=== PATIENT | female | born 1955 | race Two or more races ===

== ENCOUNTER 2017-10-18 18:17 | Observation (INO) ==
--- NOTE | 2017-10-18 19:21 | DR.GENAD ---
HPI - Complaint/Symptoms Chief Complaint Doctors Comments: Patient was in the emergency room earlier today and the family states she took an overdose of her medicines and left the emergency room around 7 pm after getting her at 3pm. Family states she was doing fine initially when she got home but started vomiting and having problems breathing and has been weak since and almost fell at home. States she has not been feeling good since and has been having xiphoid chest pain. States she does not have a local doctor but has a doctor in [place]. She has been having chest pain, SOB and wheezing tonight. Family denies alcohol or tobacco usage. States patient has had wisdom tooth surgery recently and has been taking medicines for her tooth and was taking to much of it. - Nurses notes reviewed Nurses Notes Review: Yes - Source History Provided: Patient, Family Member - Mode of Arrival Mode of Arrival: Ambulatory - Timing Came on: Gradually - Duration Duration: Constant How lon Duration: Hours - Location Location: xiphoid chest pain - Severity Severity: Moderate - Modifying Factors Worsens:: nothing Improves:: nothing <AL COKER - Last Filed: 10/19/17 04:29> - PCP Primary Care Physician: NFD - HPI Comment HPI Comment: PER CHIEF COMPLAINT. - Complaint/Symptoms Chief Complaint:: PT STARTED SHIVERING AND BECAME WEAK ABOUT 11 OR 12 NOON TODAY AND JUST HASN'T FELT ANY BETTER SINCE. SHE STATED THAT SHE TOOK SOME ANTIBOTIC FOR HER WISDOM TEETH AND THAT IS WHEN SHE STARTED TO FEEL BAD. - Nurses notes reviewed Nurses Notes Review: Yes - Source History Provided: Patient - Mode of Arrival Mode of Arrival: Ambulatory - Timing Onset of Chief Complaint: 10/18/17 <DAVE SMART - Last Filed: 11/12/17 04:04> PMH - PMH Past Medical History: Yes Past Medical History: Diabetes, Hypertension Past Surgical History: Yes Surgical History: - Family History History of Family Medical Conditions: No - Social History Does patient currently use any type of tobacco product: No Have you used tobacco products in the last 12 months: No Type of Tobacco Use: None Does any household member use tobacco: No Alcohol Use: None Do you use any recreational Drugs:: No Lives With: Family Lives Where: Home - infectious screening In the last 2 months have you had wt loss of >10#?: NO Have you had fever, night sweats or hemotysis?: No Have you traveled outside the country in the last 6 months?: Yes Details about travelin08/02/17 Isolation: Standard <DAVE SMART - Last Filed: 11/12/17 04:04> ROS - Review of Systems Constitutional: No Symptoms Reported, Weakness. negative: See HPI, Chills, Diaphoresis, Fever, Malaise, Irritable, Fatigue, Loss of Appetite, Other Eyes: No Symptoms Reported ENTM: No Symptoms Reported, Mouth Pain. negative: See HPI, Ear Pain, Ear Discharge, Pulling on Ears, Hearing Loss, Nose Pain, Nose Discharge, Epistaxis, Nose Congestion, Mouth Swelling, Loose Teeth, Drooling, Throat Pain, Throat Swelling, Ear Foreign Body Respiratoy: No Symptoms Reported, Short of Breath, Wheezing. negative: See HPI , Productive Cough, Non-Productive Cough, Moist Cough, Dry Cough, Hacking Cough , Barking Cough, Brassy Cough, Orthopnea, Stridor, Hemoptysis, Other Cardiovascular: No Symptoms Reported, Chest Pain. negative: See HPI, Edema, Palpitations, Syncope, Cyanosis, Skin Mottling, Other Gastrointestinal/Abdominal: No Symptoms Reported, Abdominal Pain, Nausea, Vomiting. negative: See HPI, Constipation, Diarrhea, Food Intolerance, Other Genitourinary: No Symptoms Reported. negative: See HPI, Discharge, Dysuria, Frequency, Hematuria, Pain, Bleeding, Other Neurological: No Symptoms Reported Musculoskeletal: No Symptoms Reported Integumentary: No Symptoms Reported Hematologic/Lymphatic: No Symptoms Reported. negative: See HPI, Anemia, Blood Clots, Easy Bleeding, Easy Bruising, Swollen Glands, Lymphadenopathy, Other Endocrine: No Symptoms Reported Psychiatric: No Symptoms Reported. negative: See HPI, Anxiety, Depression, Hallucinations, Excessive crying, Suicidal, Other <AL COKER - Last Filed: 10/19/17 04:29> PE - General Limitations: Language Barrier General Appearance: Alert, Lethargic, In Distress (moderate) - Head Head Exam: Normal Inspection, Atraumatic, Normocephalic - Eyes Eye exam: Normal Appearance, PERRL, EOMI. negative: Scleral Icterus, Conjunctival Injection, Nystagmus, Miosis, Mydrasis, Periorbital Swelling, Periorbital Tenderness, Other - ENT ENT Exam: Normal Exam, Normal Oropharynx, Normal External Ear Exam, Mucous Membranes Moist, TM's Normal Bilaterally External Ear Exam: Normal External Inspection. negative: Auricular Hematoma, Auricular Trauma, Mastoid Tenderness, Pain with Movement, External Tenderness, Periauricular Adenopathy, Other TM/Canal Exam: Bilateral Normal Nose Exam: Normal Nose Exam Mouth Exam: Normal Inspection Throat Exam: Normal Inspection - Neck Neck Exam: Normal Inspection, Full ROM, Trachea Midline - Chest Chest Inspection: Normal Inspection, Symmetric Chest Wall Rise - Respiratory Respiratory Exam: Normal Lung Sounds Bilat, Prolonged Expiratory Phase Respiratory Exam: Bilateral Wheezing, Bilateral Rhonchi - Cardiovascular Cardiovascular Exam: Regular Rate, Normal Rhythm, Normal Heart Sounds - Abdominal Exam Abdominal Exam: Normal Inspection, Normal Bowel Sounds, Soft, Distention, Tenderness (epigastric tenderness), Hyperactive Bowel Sounds Abdominal Tenderness: Epigastrium, Moderate - Extremities Extremities Exam: Normal Inspection, Full ROM, Normal Capillary Refill. negative: Tenderness, Edema, Joint Swelling, Calf Tenderness, Other - Back Back Exam: Normal Inspection, Full ROM. negative: Tenderness, (R) CVA Tenderness, (L) CVA Tenderness, Muscle Spasm, Paraspinal Tenderness, Vertebral Tenderness, Rashes, (R) Sciatic Notch Tenderness, (L) Sciatic Notch Tendern, (R ) Straight Leg Raise, (L) Straight Leg Raise, Other - Neurologic Neurological Exam: Alert, Oriented X3, CN II-XII Intact, Reflexes Normal. negative: Normal Gait (gait not tested) - Psychiatric Psychiatric Exam: Normal Affect, Normal Mood - Skin Skin Exam: Warm, Dry, Intact, Normal Color <AL COKER - Last Filed: 10/19/17 04:29> - Vital Signs Vitals: Temperature 98.9 F Pulse Rate [Left] 100 Pulse Rate 86 Respiratory Rate 19 Blood Pressure [Left Arm] 116/53 Blood Pressure 104/53 O2 Sat by Pulse Oximetry 97 MDM - Differential Diagnosis Differential Diagnosis: ACCIDENTAL DRUG INGESTION. <DAVE SMART - Last Filed: 11/12/17 04:04> Course - Consultation Called: 04:29 Call Returned: 04:29 (Dr. jorgensen to admit) - Education/Counseling Education/Counseling: Patient, Family Educated On: Treatment, Diagnosis, Needs for Follow Up <AL COKER - Last Filed: 10/19/17 04:29> ROR - Labs Reviewed Laboratory Results Reviewed?: Yes (All labs and x-ray results reviewed and discussed with patient.) Result Diagrams: 10/19/17 01:00 10/19/17 01:00 - XRAY XRAY Interpreted by: Radiologist (CT abdomen and pelvis: Retained stool compatible constipatioan. Mild distention of the gallbladder correlate with clinical exam. ) - EKG Rate: 91 [place]: Normal Rhythm: NSR Block: None Hypertrophy: None ST: Normal <AL COKER - Last Filed: 10/19/17 04:29> - Labs Reviewed Result Diagrams: 10/20/17 05:01 10/20/17 05:01 <CHRISTIE SMARTDARLINJUSTICETrellDavid - Last Filed: 11/12/17 04:04> - Labs Reviewed Laboratory: WBC 14.1 X10^3/uL (3.6-10.0) H 10/19/17 01:00 RBC 4.05 X10^6/uL (3.5-5.4) 10/19/17 01:00 Hgb 11.8 g/dL (12.0-16.0) L 10/19/17 01:00 Hct 35.5 % (36.0-47.0) L 10/19/17 01:00 MCV 87.7 fL (80.0-100.0) 10/19/17 01:00 MCH 29.2 pg (27.0-34.0) 10/19/17 01:00 MCHC 33.3 g/dL (33.0-35.0) 10/19/17 01:00 RDW 12.6 % (11.6-16.5) 10/19/17 01:00 Plt Count 196 X10^3/uL (150.0-450.0) 10/19/17 01:00 Plt Count Comment Adequate (ADEQUATE) 10/19/17 01:00 MPV 9.9 fL (7.4-11.0) 10/19/17 01:00 Neut % (Auto) 97.5 % (42.0-75.0) H 10/19/17 01:00 Lymph % (Auto) 1.2 % (21.0-51.0) L 10/19/17 01:00 [place] % (Auto) 0.7 % (0.0-13.0) 10/19/17 01:00 Eos % (Auto) 0.4 % (0.9-2.9) L 10/19/17 01:00 Baso % (Auto) 0.2 % (0.2-1.0) 10/19/17 01:00 Neut # (Auto) 13.8 x10^3/uL (2.2-4.8) H 10/19/17 01:00 Lymph # (Auto) 0.2 X10^3/uL (1.3-2.9) L 10/19/17 01:00 [place] # (Auto) 0.1 x10^3/uL (0.3-0.8) L 10/19/17 01:00 Eos # (Auto) 0.1 x10^3/uL (0.0-0.2) 10/19/17 01:00 Baso # (Auto) 0.0 X10^3/uL (0.0-0.1) 10/19/17 01:00 Absolute Nucleated RBC 0.0 /100WBC 10/19/17 01:00 Total Counted 100 10/19/17 01:00 Neutrophils % (Manual) 84 % (39-76) H 10/19/17 01:00 Band Neutrophils % 14 % (0-10) H 10/19/17 01:00 Lymphocytes % (Manual) 2 % (13-43) L 10/19/17 01:00 Plt Morphology Comment Normal (NORMAL) 10/19/17 01:00 RBC Morphology Abnormal (NORMAL) A 10/19/17 01:00 Spherocytes Present 10/19/17 01:00 Stomatocytes Present 10/19/17 01:00 INR Target Range - 10/19/17 01:00 INR 1.05 (0.8-1.3) 10/19/17 01:00 APTT 28.9 SECONDS (22.9-36.5) 10/19/17 01:00 PTT Comment - 10/19/17 01:00 D-Dimer 1720 ng/mL (0-400) H* 10/19/17 01:00 Sodium 136 mmol/L (136-145) 10/19/17 01:00 Corrected Sodium 139 mmol/L (136-145) 10/19/17 01:00 Potassium 4.6 mmol/L (3.5-5.1) 10/19/17 01:00 Chloride 102 mmol/L (98-107) 10/19/17 01:00 Carbon Dioxide 26.7 mmol/L (21-32) 10/19/17 01:00 BUN 35 mg/dL (7-18) H 10/19/17 01:00 Creatinine 1.68 mg/dL (0.55-1.02) H 10/19/17 01:00 Est GFR (MDRD) Af Amer 40 (>60) L 10/19/17 01:00 Est GFR (MDRD) Non-Af 33 (>60) L 10/19/17 01:00 Glucose 207 mg/dL (65-99) H 10/19/17 01:00 POC Glucose (mg/dL) 229 mg/dL (65-99) H 10/19/17 00:33 Lactic Acid 2.2 mmol/L (0.4-2.0) H 10/19/17 01:00 Calcium 8.6 mg/dL (8.5-10.1) 10/19/17 01:00 Corrected Calcium 9.2 mg/dL (8.5-10.1) 10/19/17 01:00 Magnesium 1.7 mg/dL (1.7-2.9) 10/19/17 01:00 Total Bilirubin 0.90 mg/dL (0.2-1.0) 10/19/17 01:00 AST 18 Units/L (15-37) 10/19/17 01:00 ALT 24 Units/L (12-78) 10/19/17 01:00 Alkaline Phosphatase 123 Units/L (46-116) H 10/19/17 01:00 Creatine Kinase 124 Units/L (26-192) 10/19/17 01:00 CK-MB (CK-2) 1.3 ng/mL (0-4.0) 10/19/17 01:00 CK/CKMB % Calc 1.1 % (<4) 10/19/17 01:00 Troponin I < 0.02 ng/mL (0-1.5) 10/19/17 01:00 Total Protein 7.2 g/dL (6.4-8.2) 10/19/17 01:00 Albumin 3.2 g/dL (3.4-5.0) L 10/19/17 01:00 Globulin 4.0 g/dL (2.5-4.5) 10/19/17 01:00 Albumin/Globulin Ratio 0.8 Ratio (1.1-2.1) L 10/19/17 01:00 <AL COKER - Last Filed: 10/19/17 04:29> <DAVE SMART - Last Filed: 11/12/17 04:04> - Diagnosis Discharge Problem: SIRS (systemic inflammatory response syndrome), Dehydration, Chronic kidney disease, Chest pain Accidental drug ingestion Qualifiers: Encounter type: initial encounter Qualified Code(s): T50.901A - Poisoning by unspecified drugs, medicaments and biological substances, accidental ( unintentional), initial encounter Diabetes mellitus Qualifiers: Diabetes mellitus type: type 2 - Discharge Plan Disposition: ADMITTED INPATIENT Condition: Stable
[2017-10-19] MEDS ORDERED: DUONEB 0.5 MG/3 MG NEB ONE (00:45)
[2017-10-19] MEDS ORDERED: NS 1000 ML 1,000 ML IV SCH (01:00)
[2017-10-19] MEDS ORDERED: DUONEB 0.5 MG/3 MG ONE (01:05)
[2017-10-19 01:18] LABS: BASOPHILS % (AUTO) 0.2 % (0.2-1.0); EOSINOPHILS # (AUTO) 0.1 x10^3/uL (0.0-0.2); EOSINOPHILS % (AUTO) 0.4 % (0.9-2.9); HEMATOCRIT 35.5 % (36.0-47.0); HEMOGLOBIN 11.8 g/dL (12.0-16.0); LYMPHOCYTES # (AUTO) 0.2 X10^3/uL (1.3-2.9); LYMPHOCYTES % (AUTO) 1.2 % (21.0-51.0); MEAN CORPUSCULAR HEMOGLOBIN 29.2 pg (27.0-34.0); MEAN CORPUSCULAR HGB CONC 33.3 g/dL (33.0-35.0); MEAN CORPUSCULAR VOLUME 87.7 fL (80.0-100.0); MEAN PLATELET VOLUME 9.9 fL (7.4-11.0); MONOCYTES # (AUTO) 0.1 x10^3/uL (0.3-0.8); MONOCYTES % (AUTO) 0.7 % (0.0-13.0); NEUTROPHILS # (AUTO) 13.8 x10^3/uL (2.2-4.8); NEUTROPHILS % (AUTO) 97.5 % (42.0-75.0); PLATELET COUNT 196 X10^3/uL (150.0-450.0); RED BLOOD COUNT 4.05 X10^6/uL (3.5-5.4); RED CELL DISTRIBUTION WIDTH 12.6 % (11.6-16.5); WHITE BLOOD COUNT 14.1 X10^3/uL (3.6-10.0)
[2017-10-19 01:35] LABS: BLOOD UREA NITROGEN 35 mg/dL (7-18); CALCIUM 8.6 mg/dL (8.5-10.1); CARBON DIOXIDE 26.7 mmol/L (21-32); CHLORIDE 102 mmol/L (98-107); COR NA(FOR HYPERGLY) 139 mmol/L (136-145); CREATININE 1.68 mg/dL (0.55-1.02); SODIUM 136 mmol/L (136-145); TROPONIN I < 0.02 ng/mL (0-1.5); eGFR NON BLACK RACES 33 (>60)
[2017-10-19 01:38] LABS: ALANINE AMINOTRANSFERASE 24 Units/L (12-78); ALBUMIN 3.2 g/dL (3.4-5.0); ALKALINE PHOSPHATASE 123 Units/L (46-116); ASPARTATE AMINO TRANSFERASE 18 Units/L (15-37); BAND NEUTROPHILS % 14 % (0-10); CKMB % 1.1 % (<4); COR CA(FOR HYPOALB) 9.2 mg/dL (8.5-10.1); CREATINE KINASE 124 Units/L (26-192); CREATINE KINASE MB 1.3 ng/mL (0-4.0); MAGNESIUM 1.7 mg/dL (1.7-2.9); PLATELET MORPHOLOGY COMMENT NORMAL (NORMAL); SPHEROCYTES PRESENT; TOTAL PROTEIN 7.2 g/dL (6.4-8.2)
[2017-10-19 01:39] LABS: STOMATOCYTES PRESENT
[2017-10-19] MEDS ORDERED: ROCEPHIN 1 GRAM IV PREMIX 1 G/50 ML IV.SOLN. IV ONE ×2 (02:02→02:18)
--- NOTE | 2017-10-19 02:32 | CT ---
CT abdomen pelvis without contrast Indication: Abdominal pain and nausea Findings: The lung bases and cardiac chambers are unremarkable. The noncontrast appearance of the gwendolyn er pancreas and spleen are normal. The gallbladder is mildly distended with without filling defect or wall thickening. Perinephric spaces and kidneys are unremarkable. There is mild small bowel luminal stasis nonspecific in distribution. Mild enteritis related changes cannot be excluded. There is moder ate stool retained throughout the colon compatible with constipation. The appendix is not completely visualized. There is no inflammatory change of the right lower quadrant. Uterus and adnexa are grossl y normal. Skeletal structures are intact with degenerative changes of the L5-S1 and L4-5 discs. There is no aneurysm. Impression: 1. Retained stool compatible constipation. 2. Mild distention of the gallbladder correlate with clinical exam if indicated follow-up sonography can be considered. 3. Mild small bowel luminal stasis correlate with enteritis. Reported By:
[2017-10-19] MEDS ORDERED: PHENERGAN TAB 25 MG PO PRN (04:17)
[2017-10-19] MEDS: NS 1000 ML 1,000 ML IV SCH ×4 (04:33→22:06)
[2017-10-19] MEDS: ROCEPHIN 1 GRAM IV PREMIX 1 G/50 ML IV.SOLN. IV SCH ×2 (05:18→08:43)
--- NOTE | 2017-10-19 05:22 | RAD ---
Chest portable Indication: Nausea and vomiting Findings: Lung volumes are shallow with crowding of markings at the bases. The heart is partially obs cured. There is no focal infiltrate effusion or pneumothorax seen. No obvious congestive failure hinds ges are present. Skeleton appears intact Impression: 1. Decreased inspiratory volumes. No other acute pathology of the chest suspected. Reported By:
[2017-10-19] MEDS: DUONEB 0.5 MG/3 MG NEB SCH ×5 (05:23→20:38)
[2017-10-19] MEDS: HumuLIN R SC PRN ×4 (05:38→21:38)
[2017-10-19 06:21] LABS: CALCIUM 8.2 mg/dL (8.5-10.1); CREATININE 1.48 mg/dL (0.55-1.02)
[2017-10-19 06:27] LABS: BILIRUBIN,URINE NEGATIVE (NEGATIVE); BLOOD/HEMOGLOBIN,URINE NEGATIVE (NEGATIVE); GLUCOSE, URINE 2+ (NEGATIVE); KETONES,URINE NEGATIVE (NEGATIVE); LEUKOCYTE ESTERASE ,URINE 1+ (NEGATIVE); NITRITES,URINE NEGATIVE (NEGATIVE); PROTEIN,URINE 1+ (NEGATIVE); UROBILINOGEN,URINE NORMAL (NORMAL)
[2017-10-19 06:28] LABS: APPEARANCE,URINE HAZY (CLEAR); COLOR,URINE YELLOW (YELLOW)
[2017-10-19 06:33] LABS: BACTERIA,URINE TRACE /HPF (NEGATIVE); RBC,URINE 0-2 /HPF (NONE SEEN); SQUAMOUS EPITHELIAL CELL,UR MODERATE /HPF (NEGATIVE)
[2017-10-19] MEDS: LOVENOX INJ 60 MG SYR SC SCH ×2 (08:43→21:24)
[2017-10-19] MEDS: TYLENOL 325 MG TAB PO PRN ×2 (10:51→21:38)
[2017-10-19] MEDS: CLEOCIN 600 MG IV PREMIX 600 MG/50 ML BAG IV SCH ×2 (15:41→21:24)
[2017-10-19] MEDS ORDERED: CHRONULAC PO SCH (17:35)
[2017-10-19 18:17] VITALS: BMI 28.9
[2017-10-19] MEDS: CHRONULAC PO SCH (21:25)
--- NOTE | 2017-10-19 22:27 | DR.H&P ---
H&P - History & Physical for Day of: H&P Date: 10/18/17 - Chief Complaint Chief Complaint: RIGHT TOOTH PAIN - History of Present Illness History of Present Illness: Patient was in the emergency room earlier today and the family states she took an overdose of her medicines and left the emergency room around 7 pm after getting her at 3pm. Family states she was doing fine initially when she got home but started vomiting and having problems breathing and has been weak since and almost fell at home. States she has not been feeling good since and has been having xiphoid chest pain. States she does not have a local doctor but has a doctor in [place]. She has been having chest pain , SOB and wheezing tonight. Family denies alcohol or tobacco usage. States patient has had wisdom tooth surgery recently and has been taking medicines for her tooth and was taking to much of it. - Past Medical History Past Medical History: Diabetes, Hypertension - Past Surgical History Surgical History: - Family History Family Medical History: Diabetes Mellitus - Social History Does patient currently use any type of tobacco product: No Have you used tobacco products in the last 12 months: No Type of Tobacco Use: None Does any household member use tobacco: No Alcohol Use: None Drug Use: Prescription Drugs - Medications Home Medications: No Known Drug Allergies Allergy (Verified 10/18/17 18:18) CONTINUE taking the following medications alprazolam 0.25 mg PO DAILY 10/19/17 [History] aspirin 162.5 mg PO DAILY 10/19/17 [History] - Review of Systems Constitutional: No Symptoms Reported Eyes: No Symptoms Reported ENT: No Symptoms Reported, Mouth Pain (RIGHT LOWER FRONT GUMLINE ERYTHEMA) Respiratory: No Symptoms Reported Cardiovascular: No Symptoms Reported Gastrointestinal: Constipation Genitourinary: No Symptoms Reported Musculoskeletal: No Symptoms Reported Skin: No Symptoms Reported Neurological: No Symptoms Reported - Physical Exam Vital Signs: Temperature 98.2 F Pulse Rate [Left] 82 Pulse Rate 85 Respiratory Rate 18 Blood Pressure [Left Arm] 120/59 Blood Pressure 104/53 O2 Sat by Pulse Oximetry 98 Oriented: Normal Eyes: Normal Ear: Normal Nose: Normal Throat: Normal, Other (RIGHT LOWER FRONT GUMLINE ERYTHEMA) Respiratory: Clear Throughout Cardiovascular: Normal : Normal Auscultation: Bowel Sounds: Normal Palpation: Normal Tenderness: Normal Skin: Normal Musculoskeletal: Normal Psychiatric: Normal Mood Description: Calm Affect: Normal Speech Pattern: Clear - Assessment/Plan (1) UTI (urinary tract infection) Status: Acute Plan: ROCEPHIN IV (2) Dental abscess Status: Acute Plan: CLINDAMYCIN IV (3) Enteritis Status: Acute Plan: ASYMPTOMATIC (4) SIRS (systemic inflammatory response syndrome) Status: Acute (5) Diabetes mellitus Qualifiers: Diabetes mellitus type: type 2 Status: Acute Plan: MONITOR BS (6) Chronic kidney disease Status: Acute Plan: IV HYDRATION, MONITOR LABS - Allergies Allergies/Adverse Reactions: Allergies Allergy/AdvReac Type Severity Reaction Status Date / Time No Known Drug Allergies Allergy Verified 10/18/17 18:18
--- NOTE | 2017-10-19 22:30 | PCM.PROG ---
Progress Note - Progress Note for Day of Date of Exam: 10/19/17 - Subjective Subjective: 62YO HF ADMITTED WITH COMPLAINT OF RIGHT LOWER DENTAL ABSCESS. COMPLAINS OF SWELLING TO FACE. DOES STATE SHE HAS BEEN CONSTIPATED WITH NO BM IN SEVERAL DAYS. DENIES ANY OTHER COMPLAINS. - Past Medical Family Social History Past Med/Fam/Surg Hx: No changes since H&P Allergies: Allergies No Known Drug Allergies Allergy (Verified 10/18/17 18:18) - Review of Systems ROS: No change since H&P - Vital Signs and I&O's Vital Signs: Temperature 98.2 F Pulse Rate [Left] 82 Pulse Rate 85 Respiratory Rate 18 Blood Pressure [Left Arm] 120/59 Blood Pressure 104/53 O2 Sat by Pulse Oximetry 98 Intake and Output: Intake & Output 10/17/17 10/18/17 10/19/17 10/20/17 11:59 11:59 11:59 11:59 Intake Total 200 / 200 1020 / 1020 Balance 200 / 200 1020 / 1020 - Physical Exam Oriented: Normal Eyes: Normal Ear: Normal Nose: Normal Throat: Normal, Other (RIGHT LOWER FRONT GUMLINE ERYTHEMA) Cardiovascular: Normal : Normal Auscultation: Bowel Sounds: Normal Tenderness: Normal Skin: Normal Musculoskeletal: Normal Psychiatric: Normal Mood Description: Calm Affect: Normal Speech Pattern: Clear - Laboratory and Diagnostics Result Diagrams: 10/19/17 01:00 10/19/17 05:18 Labs: Laboratory WBC 14.1 X10^3/uL (3.6-10.0) H 10/19/17 01:00 RBC 4.05 X10^6/uL (3.5-5.4) 10/19/17 01:00 Hgb 11.8 g/dL (12.0-16.0) L 10/19/17 01:00 Hct 35.5 % (36.0-47.0) L 10/19/17 01:00 MCV 87.7 fL (80.0-100.0) 10/19/17 01:00 MCH 29.2 pg (27.0-34.0) 10/19/17 01:00 MCHC 33.3 g/dL (33.0-35.0) 10/19/17 01:00 RDW 12.6 % (11.6-16.5) 10/19/17 01:00 Plt Count 196 X10^3/uL (150.0-450.0) 10/19/17 01:00 Plt Count Comment Adequate (ADEQUATE) 10/19/17 01:00 MPV 9.9 fL (7.4-11.0) 10/19/17 01:00 Neut % (Auto) 97.5 % (42.0-75.0) H 10/19/17 01:00 Lymph % (Auto) 1.2 % (21.0-51.0) L 10/19/17 01:00 [place] % (Auto) 0.7 % (0.0-13.0) 10/19/17 01:00 Eos % (Auto) 0.4 % (0.9-2.9) L 10/19/17 01:00 Baso % (Auto) 0.2 % (0.2-1.0) 10/19/17 01:00 Neut # (Auto) 13.8 x10^3/uL (2.2-4.8) H 10/19/17 01:00 Lymph # (Auto) 0.2 X10^3/uL (1.3-2.9) L 10/19/17 01:00 [place] # (Auto) 0.1 x10^3/uL (0.3-0.8) L 10/19/17 01:00 Eos # (Auto) 0.1 x10^3/uL (0.0-0.2) 10/19/17 01:00 Baso # (Auto) 0.0 X10^3/uL (0.0-0.1) 10/19/17 01:00 Absolute Nucleated RBC 0.0 /100WBC 10/19/17 01:00 Total Counted 100 10/19/17 01:00 Neutrophils % (Manual) 84 % (39-76) H 10/19/17 01:00 Band Neutrophils % 14 % (0-10) H 10/19/17 01:00 Lymphocytes % (Manual) 2 % (13-43) L 10/19/17 01:00 Plt Morphology Comment Normal (NORMAL) 10/19/17 01:00 RBC Morphology Abnormal (NORMAL) A 10/19/17 01:00 Spherocytes Present 10/19/17 01:00 Stomatocytes Present 10/19/17 01:00 INR Target Range - 10/19/17 01:00 INR 1.05 (0.8-1.3) 10/19/17 01:00 APTT 28.9 SECONDS (22.9-36.5) 10/19/17 01:00 PTT Comment - 10/19/17 01:00 D-Dimer 1720 ng/mL (0-400) H* 10/19/17 01:00 Sodium 137 mmol/L (136-145) 10/19/17 05:18 Corrected Sodium 142 mmol/L (136-145) 10/19/17 05:18 Potassium 4.9 mmol/L (3.5-5.1) 10/19/17 05:18 Chloride 105 mmol/L (98-107) 10/19/17 05:18 Carbon Dioxide 26.0 mmol/L (21-32) 10/19/17 05:18 BUN 34 mg/dL (7-18) H 10/19/17 05:18 Creatinine 1.48 mg/dL (0.55-1.02) H 10/19/17 05:18 Est GFR (MDRD) Af Amer 46 (>60) L 10/19/17 05:18 Est GFR (MDRD) Non-Af 38 (>60) L 10/19/17 05:18 Glucose 327 mg/dL (65-99) H 10/19/17 05:18 POC Glucose (mg/dL) 306 mg/dL (65-99) H 10/19/17 21:28 Lactic Acid 2.2 mmol/L (0.4-2.0) H 10/19/17 01:00 Calcium 8.2 mg/dL (8.5-10.1) L 10/19/17 05:18 Corrected Calcium 9.2 mg/dL (8.5-10.1) 10/19/17 01:00 Magnesium 1.7 mg/dL (1.7-2.9) 10/19/17 01:00 Total Bilirubin 0.90 mg/dL (0.2-1.0) 10/19/17 01:00 AST 18 Units/L (15-37) 10/19/17 01:00 ALT 24 Units/L (12-78) 10/19/17 01:00 Alkaline Phosphatase 123 Units/L (46-116) H 10/19/17 01:00 Creatine Kinase 124 Units/L (26-192) 10/19/17 01:00 CK-MB (CK-2) 1.3 ng/mL (0-4.0) 10/19/17 01:00 CK/CKMB % Calc 1.1 % (<4) 10/19/17 01:00 Troponin I < 0.02 ng/mL (0-1.5) 10/19/17 01:00 Total Protein 7.2 g/dL (6.4-8.2) 10/19/17 01:00 Albumin 3.2 g/dL (3.4-5.0) L 10/19/17 01:00 Globulin 4.0 g/dL (2.5-4.5) 10/19/17 01:00 Albumin/Globulin Ratio 0.8 Ratio (1.1-2.1) L 10/19/17 01:00 Specimen Type Clean catch urine 10/19/17 05:58 Urine Color Yellow (YELLOW) 10/19/17 05:58 Urine Appearance Hazy (CLEAR) 10/19/17 05:58 Urine pH 5.0 (5.0 - 8.0) 10/19/17 05:58 Ur Specific [place] 1.010 (1.000-1.030) 10/19/17 05:58 Urine Protein 1+ (NEGATIVE) 10/19/17 05:58 Urine Glucose (UA) 2+ (NEGATIVE) 10/19/17 05:58 Urine Ketones Negative (NEGATIVE) 10/19/17 05:58 Urine Occult Blood Negative (NEGATIVE) 10/19/17 05:58 Urine Nitrite Negative (NEGATIVE) 10/19/17 05:58 Urine Bilirubin Negative (NEGATIVE) 10/19/17 05:58 Urine Urobilinogen Normal (NORMAL) 10/19/17 05:58 Ur Leukocyte Esterase 1+ (NEGATIVE) 10/19/17 05:58 Urine RBC 0-2 /HPF (NONE SEEN) 10/19/17 05:58 Urine WBC 3-5 /HPF (NONE SEEN) 10/19/17 05:58 Ur Squamous Epith Cells Moderate /HPF (NEGATIVE) 10/19/17 05:58 Urine Bacteria Trace /HPF (NEGATIVE) 10/19/17 05:58 Ur Culture Indicated? No/not indicated 10/19/17 05:58 - Plan (1) UTI (urinary tract infection) Status: Acute Plan: ROCEPHIN IV (2) Dental abscess Status: Acute Plan: CLINDAMYCIN IV (3) Enteritis Status: Acute Plan: ASYMPTOMATIC (4) SIRS (systemic inflammatory response syndrome) Status: Acute (5) Diabetes mellitus Status: Acute Qualifiers: Diabetes mellitus type: type 2 Plan: MONITOR BS (6) Chronic kidney disease Status: Acute Plan: IV HYDRATION, MONITOR LABS
[2017-10-20] MEDS: DUONEB 0.5 MG/3 MG NEB SCH ×4 (00:14→12:04)
[2017-10-20] MEDS: CHRONULAC PO SCH (03:06)
[2017-10-20 05:58] LABS: BASOPHILS % (AUTO) 0.4 % (0.2-1.0); EOSINOPHILS # (AUTO) 0.1 x10^3/uL (0.0-0.2); EOSINOPHILS % (AUTO) 1.9 % (0.9-2.9); HEMATOCRIT 34.3 % (36.0-47.0); HEMOGLOBIN 11.6 g/dL (12.0-16.0); LYMPHOCYTES % (AUTO) 12.6 % (21.0-51.0); MEAN CORPUSCULAR HGB CONC 33.9 g/dL (33.0-35.0); MEAN CORPUSCULAR VOLUME 88.6 fL (80.0-100.0); MEAN PLATELET VOLUME 10.2 fL (7.4-11.0); MONOCYTES # (AUTO) 0.5 x10^3/uL (0.3-0.8); MONOCYTES % (AUTO) 6.2 % (0.0-13.0); NEUTROPHILS # (AUTO) 6.1 x10^3/uL (2.2-4.8); NEUTROPHILS % (AUTO) 78.9 % (42.0-75.0); PLATELET COUNT 158 X10^3/uL (150.0-450.0); RED BLOOD COUNT 3.87 X10^6/uL (3.5-5.4); RED CELL DISTRIBUTION WIDTH 12.9 % (11.6-16.5); WHITE BLOOD COUNT 7.7 X10^3/uL (3.6-10.0)
[2017-10-20] MEDS: CLEOCIN 600 MG IV PREMIX 600 MG/50 ML BAG IV SCH ×2 (06:15→14:11)
[2017-10-20] MEDS: HumuLIN R SC PRN ×2 (06:19→12:05)
[2017-10-20 06:39] LABS: BLOOD UREA NITROGEN 13 mg/dL (7-18); CALCIUM 8.7 mg/dL (8.5-10.1); CARBON DIOXIDE 23.5 mmol/L (21-32); CHLORIDE 106 mmol/L (98-107); COR NA(FOR HYPERGLY) 141 mmol/L (136-145); CREATININE 1.17 mg/dL (0.55-1.02); SODIUM 139 mmol/L (136-145); eGFR NON BLACK RACES 50 (>60)
[2017-10-20] MEDS ORDERED: ASPIRIN PO SCH (09:00)
[2017-10-20] MEDS ORDERED: XANAX PO SCH (09:00)
[2017-10-20] MEDS ORDERED: CHRONULAC PO SCH ×2 (09:00)
[2017-10-20] MEDS: LOVENOX INJ 60 MG SYR SC SCH (09:23)
[2017-10-20] MEDS: ROCEPHIN 1 GRAM IV PREMIX 1 G/50 ML IV.SOLN. IV SCH (09:24)
[2017-10-20 12:16] LABS: ALANINE AMINOTRANSFERASE 54 Units/L (12-78); ALBUMIN 3.1 g/dL (3.4-5.0); ALKALINE PHOSPHATASE 134 Units/L (46-116); ASPARTATE AMINO TRANSFERASE 48 Units/L (15-37); COR CA(FOR HYPOALB) 9.4 mg/dL (8.5-10.1); TOTAL PROTEIN 7.2 g/dL (6.4-8.2)
[2017-10-20 16:07] VITALS: BP 186/86
--- NOTE | 2017-11-02 22:21 | PCM.DCPLAN ---
Discharge Summary - Admission Date Date of Admission: 10/19/17 - Discharge Date Discharge Date: 10/20/17 - Admission Diagnoses (1) UTI (urinary tract infection) Status: Acute (2) Dental abscess Status: Acute (3) Enteritis Status: Acute (4) SIRS (systemic inflammatory response syndrome) Status: Acute (5) Diabetes mellitus Status: Acute (6) Chronic kidney disease Status: Acute - Discharge Diagnoses Discharge Diagnosis: SAME ADMISSION DIAGNOSIS - Discharge Medications Discharge Medications: Home Medication List alprazolam 0.25 mg PO DAILY 10/19/17 [History] aspirin 162.5 mg PO DAILY 10/19/17 [History] clindamycin HCl [Cleocin HCl] 300 mg PO TID #30 cap 10/20/17 [Rx] insulin NPH isoph U-100 human 10 units SUB-Q HS 10/20/17 [History] insulin regular human 15 unit SUB-Q DAILY 10/20/17 [History] Prescriptions: clindamycin HCl [Cleocin HCl] JEFF MATHEW - Hospital Course Vital Signs: Temperature 98.2 F Pulse Rate [Left] 90 Pulse Rate 76 Respiratory Rate 20 Blood Pressure [Right Arm] 186/86 Blood Pressure [Left Arm] 128/62 Blood Pressure 104/53 O2 Sat by Pulse Oximetry 94 Latest Lab Results: Laboratory Last Values WBC 7.7 X10^3/uL (3.6-10.0) 10/20/17 05:01 RBC 3.87 X10^6/uL (3.5-5.4) 10/20/17 05:01 Hgb 11.6 g/dL (12.0-16.0) L 10/20/17 05:01 Hct 34.3 % (36.0-47.0) L 10/20/17 05:01 MCV 88.6 fL (80.0-100.0) 10/20/17 05:01 MCH 30.0 pg (27.0-34.0) 10/20/17 05:01 MCHC 33.9 g/dL (33.0-35.0) 10/20/17 05:01 RDW 12.9 % (11.6-16.5) 10/20/17 05:01 Plt Count 158 X10^3/uL (150.0-450.0) 10/20/17 05:01 Plt Count Comment Adequate (ADEQUATE) 10/19/17 01:00 MPV 10.2 fL (7.4-11.0) 10/20/17 05:01 Neut % (Auto) 78.9 % (42.0-75.0) H 10/20/17 05:01 Lymph % (Auto) 12.6 % (21.0-51.0) L 10/20/17 05:01 Roosevelt % (Auto) 6.2 % (0.0-13.0) 10/20/17 05:01 Eos % (Auto) 1.9 % (0.9-2.9) 10/20/17 05:01 Baso % (Auto) 0.4 % (0.2-1.0) 10/20/17 05:01 Neut # (Auto) 6.1 x10^3/uL (2.2-4.8) H 10/20/17 05:01 Lymph # (Auto) 1.0 X10^3/uL (1.3-2.9) L 10/20/17 05:01 Roosevelt # (Auto) 0.5 x10^3/uL (0.3-0.8) 10/20/17 05:01 Eos # (Auto) 0.1 x10^3/uL (0.0-0.2) 10/20/17 05:01 Baso # (Auto) 0.0 X10^3/uL (0.0-0.1) 10/20/17 05:01 Absolute Nucleated RBC 0.0 /100WBC 10/20/17 05:01 Total Counted 100 10/19/17 01:00 Neutrophils % (Manual) 84 % (39-76) H 10/19/17 01:00 Band Neutrophils % 14 % (0-10) H 10/19/17 01:00 Lymphocytes % (Manual) 2 % (13-43) L 10/19/17 01:00 Plt Morphology Comment Normal (NORMAL) 10/19/17 01:00 RBC Morphology Abnormal (NORMAL) A 10/19/17 01:00 Spherocytes Present 10/19/17 01:00 Stomatocytes Present 10/19/17 01:00 INR Target Range - 10/19/17 01:00 INR 1.05 (0.8-1.3) 10/19/17 01:00 APTT 28.9 SECONDS (22.9-36.5) 10/19/17 01:00 PTT Comment - 10/19/17 01:00 D-Dimer 1720 ng/mL (0-400) H* 10/19/17 01:00 Sodium 139 mmol/L (136-145) 10/20/17 05:01 Corrected Sodium 141 mmol/L (136-145) 10/20/17 05:01 Potassium 4.3 mmol/L (3.5-5.1) 10/20/17 05:01 Chloride 106 mmol/L (98-107) 10/20/17 05:01 Carbon Dioxide 23.5 mmol/L (21-32) 10/20/17 05:01 BUN 13 mg/dL (7-18) 10/20/17 05:01 Creatinine 1.17 mg/dL (0.55-1.02) H 10/20/17 05:01 Est GFR (MDRD) Af Amer > 60 (>60) 10/20/17 05:01 Est GFR (MDRD) Non-Af 50 (>60) L 10/20/17 05:01 Glucose 192 mg/dL (65-99) H 10/20/17 05:01 POC Glucose (mg/dL) 307 mg/dL (65-99) H 10/20/17 11:57 Lactic Acid 2.2 mmol/L (0.4-2.0) H 10/19/17 01:00 Calcium 8.7 mg/dL (8.5-10.1) 10/20/17 05:01 Corrected Calcium 9.4 mg/dL (8.5-10.1) 10/20/17 05:01 Magnesium 1.7 mg/dL (1.7-2.9) 10/19/17 01:00 Total Bilirubin 0.50 mg/dL (0.2-1.0) 10/20/17 05:01 AST 48 Units/L (15-37) H 10/20/17 05:01 ALT 54 Units/L (12-78) 10/20/17 05:01 Alkaline Phosphatase 134 Units/L (46-116) H 10/20/17 05:01 Creatine Kinase 124 Units/L (26-192) 10/19/17 01:00 CK-MB (CK-2) 1.3 ng/mL (0-4.0) 10/19/17 01:00 CK/CKMB % Calc 1.1 % (<4) 10/19/17 01:00 Troponin I < 0.02 ng/mL (0-1.5) 10/19/17 01:00 Total Protein 7.2 g/dL (6.4-8.2) 10/20/17 05:01 Albumin 3.1 g/dL (3.4-5.0) L 10/20/17 05:01 Globulin 4.1 g/dL (2.5-4.5) 10/20/17 05:01 Albumin/Globulin Ratio 0.8 Ratio (1.1-2.1) L 10/20/17 05:01 Specimen Type Clean catch urine 10/19/17 05:58 Urine Color Yellow (YELLOW) 10/19/17 05:58 Urine Appearance Hazy (CLEAR) 10/19/17 05:58 Urine pH 5.0 (5.0 - 8.0) 10/19/17 05:58 Ur Specific Hammond 1.010 (1.000-1.030) 10/19/17 05:58 Urine Protein 1+ (NEGATIVE) 10/19/17 05:58 Urine Glucose (UA) 2+ (NEGATIVE) 10/19/17 05:58 Urine Ketones Negative (NEGATIVE) 10/19/17 05:58 Urine Occult Blood Negative (NEGATIVE) 10/19/17 05:58 Urine Nitrite Negative (NEGATIVE) 10/19/17 05:58 Urine Bilirubin Negative (NEGATIVE) 10/19/17 05:58 Urine Urobilinogen Normal (NORMAL) 10/19/17 05:58 Ur Leukocyte Esterase 1+ (NEGATIVE) 10/19/17 05:58 Urine RBC 0-2 /HPF (NONE SEEN) 10/19/17 05:58 Urine WBC 3-5 /HPF (NONE SEEN) 10/19/17 05:58 Ur Squamous Epith Cells Moderate /HPF (NEGATIVE) 10/19/17 05:58 Urine Bacteria Trace /HPF (NEGATIVE) 10/19/17 05:58 Ur Culture Indicated? No/not indicated 10/19/17 05:58 Hospital Course: Patient was in the emergency room earlier today and the family states she took an overdose of her medicines and left the emergency room around 7 pm after getting her at 3pm. Family states she was doing fine initially when she got home but started vomiting and having problems breathing and has been weak since and almost fell at home. States she has not been feeling good since and has been having xiphoid chest pain. [facility] she does not have a local doctor but has a doctor in [place]. She has been having chest pain, SOB and wheezing. Family denies alcohol or tobacco usage. [facility] patient has had wisdom tooth surgery recently and has been taking medicines for her tooth and was taking to much of it. Patient was given IV antibiotics. Abd pain resolved with bowel movement. Labs were unremarkable. Patient was discharged home. - Discharge Plan Disposition: HOME, SELF-CARE Condition: Stable Prescriptions: clindamycin HCl [Cleocin HCl] 300 mg PO TID #30 cap - Follow ups/Referrals Follow ups/Referrals: JACLYN,None [STAFF PHYSICIAN] - 3 days ABRIL CAMPUZANO [Primary Care Provider] - 1 WEEK - Instructions Instructions: Accidental Overdose Additional Instructions: RETURN TO ED IF WORSE.
== END 2017-10-20 17:10 | disposition home or self-care (01) ==
LOC: ER 18:17 → MED/SURG 18:17 → ER 20:05 → MED/SURG 10-19 04:53
PROVIDERS: ADMIT Internal Medicine; ATTEND Internal Medicine
DX: K52.9 Noninfective gastroenteritis and colitis, unspecified; N18.9 Chronic kidney disease, unspecified; K59.00 Constipation, unspecified; K04.7 Periapical abscess without sinus; N39.0 Urinary tract infection, site not specified; R07.9 Chest pain, unspecified; R06.02 Shortness of breath; R79.1 Abnormal coagulation profile; E11.8 Type 2 diabetes mellitus with unspecified complications
CPT/HCPCS: 36415; 71010; 71045; 74176; 80048; 80053; 81001; 82550; 82553; 83605; 83735; 84484; 85025; 85378; 85610; 85730; 93005; 93010; 94640; 96365; 96367; 96374; 99217; 99218; 99281; 99284; A4216; A4222; G0378; J0696; J1650; J1815; J3490; J7030; J7620; S0077